=== PATIENT | female | born 1995 | race Caucasian/White ===

== ENCOUNTER 2018-03-07 06:25 | Day surgery (SDC) | payer OTHER ==
[2018-03-06 10:58] VITALS: BMI 28.1
[~2018-03-07 06:25] MED LIST: LIDOCAINE 1%/EPI 1:100000 (20 ML MULTI DOSE VIAL) INF ONE; LIDOCAINE HCL 1% PRESERVATIVE FREE - 30ML VIAL EP ONE
[2018-03-07] MEDS ORDERED: LIDOCAINE 1%/EPI 1:100000 (20 ML MULTI DOSE VIAL) ONE (07:28)
[2018-03-07] MEDS ORDERED: DESFLURANE GAS 240 ML BOTTLE IH ONE (07:45)
[2018-03-07] MEDS ORDERED: COCAINE HCL 4% TOPICAL SOLUTION 4 ML BOTTLE TP ONE (07:45)
[2018-03-07] MEDS ORDERED: MIDAZOLAM HCL 2 MG/2 ML SINGLE DOSE VIAL ONE (07:48)
--- NOTE | 2018-03-07 08:03 | HP ---
Admitting History and Physical - Admission Chief Complaint: Nasal congestion and repeated sinusitis History Source: Patient Limitations to Obtaining History: No Limitations - Past Medical History ...LMP: 01/27/18 - Smoking History Smoking history: Former smoker Have you smoked in the past 12 months: No If you are a former smoker, when did you quit?: 1year ago - Alcohol/Substance Use Hx Alcohol Use: No Home Medications - Allergies Allergies/Adverse Reactions: Allergies Allergy/AdvReac Type Severity Reaction Status Date / Time No Known Drug Allergies Allergy Verified 03/06/18 11:01 - Home Medications Home Medications: Ambulatory Orders Estradiol/Norethindrone Acet [Estradiol-Noreth 1-0.5 mg Tab] 1 each PO DAILY 10/16 Review of Systems - Review of Systems Constitutional: reports: No Symptoms Eyes: reports: No Symptoms Neck: reports: No Symptoms Cardiovascular: reports: No Symptoms Respiratory: reports: No Symptoms Genitourinary: reports: No Symptoms Breasts: reports: No Symptoms Reported Musculoskeletal: reports: No Symptoms Physical Examination Vital Signs: Vital Signs Temperature 98.3 F 03/07/18 07:01 Pulse Rate 92 H 03/07/18 07:01 Respiratory Rate 16 03/07/18 07:01 Blood Pressure 128/69 03/07/18 07:01 O2 Sat by Pulse Oximetry (%) 98 03/07/18 07:01 Constitutional: Yes: Well Nourished, No Distress Eyes: Yes: WNL HENT: Yes: Nasal Congestion Neck: Yes: WNL Cardiovascular: Yes: WNL Respiratory: Yes: WNL Gastrointestinal: Yes: WNL Problem List - Problems (1) Deviated septum Code(s): J34.2 - DEVIATED NASAL SEPTUM (2) Chronic sinusitis Assessment/Plan: for corredtive surgery Code(s): J32.9 - CHRONIC SINUSITIS, UNSPECIFIED
[2018-03-07] MEDS ORDERED: PROPOFOL 20 ML ONE (08:17)
[2018-03-07] MEDS ORDERED: ROCURONIUM BROMIDE 50 MG/5 ML VIAL ONE (08:17)
[2018-03-07] MEDS ORDERED: ceFAZolin SODIUM 1 GM VIAL IVPB ONE (08:36)
[2018-03-07] MEDS ORDERED: LIDOCAINE 1%/EPI 1:100000 (20 ML MULTI DOSE VIAL) INF ONE (08:37)
[2018-03-07] MEDS ORDERED: TRIAMCINOLONE ACET 40MG/1ML VIAL ONE (09:33)
[2018-03-07] MEDS ORDERED: KETOROLAC TROMETHAMINE 30 MG/1 ML VIAL ONE (09:35)
[2018-03-07] MEDS ORDERED: DEXAMETHASONE SOD PHOSPHATE 4 MG/1 ML VIAL ONE (09:35)
[2018-03-07] MEDS ORDERED: ceFAZolin SODIUM 1 GM VIAL ONE (09:35)
[2018-03-07] MEDS ORDERED: GLYCOPYRROLATE 0.2 MG/1 ML VIAL ONE (09:36)
[2018-03-07] MEDS ORDERED: NEOSTIGMINE METHYLSULFATE 0.5 MG/ML - 10 ML MDV ONE (09:36)
[2018-03-07] MEDS ORDERED: oxyCODONE HCL 5 MG TABLET PO PRN (09:55)
[2018-03-07] MEDS ORDERED: PROMETHAZINE HCL 25 MG/1 ML VIAL IVPB PRN (09:55)
[2018-03-07] MEDS ORDERED: ONDANSETRON 4 MG/2 ML VIAL IVPUSH PRN (09:55)
[2018-03-07] MEDS ORDERED: LACTATED RINGERS SOLUTION 1,000 ML IV SCH (10:00)
[2018-03-07 11:19] VITALS: TEMP 98.2
[2018-03-07 12:00] VITALS: BP 103/46; PULSE 115
--- NOTE | 2018-03-08 15:15 | PATH ---
Surgical Pathology Report Patient Name: NICOLETTE OGDEN [facility]. Rec. #: [id number] /Age/Gender: 1995 (Age: 23) / F Account: [id number] Location: [facility] SURGICAL Taken: 03/07/2018 Received: 03/07/2018 Reported: 03/08/2018 Physicians: Irvin Melchor M.D. Specimen(s) Received A: BILATERAL ETHMOID TISSUE B: SEPTUM Clinical History Non-rheumatic mitral stenosis. Septoplasty, bilateral turbinate cautery, maxillary antrostomy with tissue removal. Final Diagnosis A. BILATERAL MAXILLARY AND ETHMOID CONTENTS, REMOVAL: CONSISTENT WITH CHRONIC SINUSITIS. B. SEPTUM, EXCISION: CONSISTENT WITH NASAL SEPTUM. Electronically Signed Cherelle Mora M.D. Gross Description A. Received in formalin labeled "bilateral maxillary and ethmoid contents," is a 4.0 x 3.0 x 0.3 cm aggregate of buckley-red soft tissue fragments. A sales representative supervisor portion is submitted in one cassette. B. Received in formalin labeled "septum," are 2 buckley, irregular portions of cartilage and possible bone measuring 0.7 x 0.3 x 0.2 cm and 1.2 x 0.5 x 0.4 cm. The larger portion is bisected and the specimen is entirely submitted in one cassette, following decalcification. 03/07/201803/07/2018
--- NOTE | 2018-03-14 10:36 | OP ---
DATE OF OPERATION: 03/07/2018 PREOPERATIVE DIAGNOSIS: Deviated septum, turbinate hypertrophy, chronic sinusitis. PROCEDURE: Septoplasty, bilateral endoscopic anterior ethmoidectomy, maxillary antrostomy, sinus navigation, turbinate outfracture, and cautery. SURGEON: Irvin Melchor MD ANESTHESIA: General endotracheal. INDICATIONS FOR THIS OPERATION: This is a woman with a history of significant deviated septum narrowing her left middle meatus with chronic sinusitis, chronic nasal obstruction refractory to medical treatment. Risks and benefits were discussed preoperatively in the office and also in the ambulatory surgery unit. All questions were answered. PROCEDURE FOLLOWS: Patient was brought to the operating room and placed under general anesthesia. Her nose was decongested with 4% cocaine on Cottonoid pledgets, and 1% lidocaine with 1:100,000 epinephrine was injected into the septum, inferior turbinates, lateral nasal wall. A [employer] navigation instrument was calibrated, and she was prepped and draped. The procedure was begun with examination of her nose with the nasal endoscope. Very significant deviation of the septum in the area of the middle meatus was noted. A left hemitransfixion incision was performed with a 15 blade, and using a Coffey elevator, a mucoperichondrial flap was elevated on the left side. A separate mucoperichondrial flap was elevated on the right side, also with the Allison elevator, and after elevating the flap, a self-retaining nasal speculum was placed, and using a combination of a cartilage knife, Blakesley-Eboni forceps, and a 15 blade, the deviated portion of the septum towards the left side was resected. After removing that, three separate interrupted mattress sutures were placed in with 4-0 chromic, and then, 5 interrupted sutures were used with 4-0 chromic to close the hemitransfixion incision. At that point, using a 0-degree endoscope, the left middle turbinate was medialized and the maxillary ostia was cannulated with a [employer] maxillary balloon device and two separate insufflations of 5 seconds apiece were performed. After which, the ethmoid bulla was entered using a straight suction and an anterior ethmoidectomy was performed using a 4-mm Medtronic-guided microdebrider. This dissection was carried towards the ground lamella, and after the tissue, a Cottonoid was placed. The left-sided uncinate was then medialized and the middle turbinate was medialized, and then, the opposite side, the right side, ostia was dilated using the Medtronic maxillary balloon with 2 separate insufflations of 5 seconds apiece. The ethmoid bulla on the right side was entered with a straight suction, and the anterior ethmoid was using the Medtronic microdebrider. The Cottonoid was then placed into the ethmoid cavity on the right side. Then, the inferior turbinate on the right side was outfractured using a long needle speculum, left-sided inferior turbinate was outfractured, and then, bipolar turbinate cautery was performed with 3 separate passes with the Elmed set at 4. The middle meatus was packed with NasoPore packing and with Bacitracin on both sides, a standard pack was used. A 0.5 mL of Kenalog 40 was injected into the packing on the right and the left sides. A separate standard NasoPore packing was placed to buttress the area on the left side where the septum was resected. Patient was then extubated in the operating room and brought to the recovery room in stable condition. Willam [id number]
== END 2018-03-07 11:55 | disposition home or self-care (01) ==
LOC: JASU-SURG 06:25
PROVIDERS: ATTEND Otolaryngology
PROC: 09TV8ZZ Resection of Left Ethmoid Sinus, Via Natural or Artificial Opening Endoscopic (ICD-10-PCS; 2018-03-07)
PROC: 09TU8ZZ Resection of Right Ethmoid Sinus, Via Natural or Artificial Opening Endoscopic (ICD-10-PCS; 2018-03-07)
PROC: 8E09XBZ Computer Assisted Procedure of Head and Neck Region (ICD-10-PCS; 2018-03-07)
PROC: 09BM8ZZ Excision of Nasal Septum, Via Natural or Artificial Opening Endoscopic (ICD-10-PCS; 2018-03-07)
PROC: 8E09XBZ Computer Assisted Procedure of Head and Neck Region (ICD-10-PCS; principal; 2018-03-07 08:00)
DX: J34.2 Deviated nasal septum (principal); J34.3 Hypertrophy of nasal turbinates; J32.9 Chronic sinusitis, unspecified; J32.0 Chronic maxillary sinusitis; J32.2 Chronic ethmoidal sinusitis
CPT/HCPCS: 84703; 88302-TC; 88304-TC; 88311-TC; 94760